=== PATIENT | male | born 1940 | race Caucasian/White ===

== ENCOUNTER 2017-06-02 15:59 | Emergency (ER) | payer MEDICARE ==
[2017-06-02 16:00] VITALS: BMI 78.4
--- NOTE | 2017-06-02 16:46 | ED PDOC ---
HPI: Male Pain Time Seen by Provider: 06/02/17 16:34 Chief Complaint (Nursing): Male Genitourinary History Per: Patient Onset/Duration Of Symptoms: Days (1) Current Symptoms Are (Timing): Still Present Severity: Moderate Pain Scale Rating Of: 3 Quality Of Discomfort: Aching Associated Symptoms: denies: Nausea, Vomiting, Diarrhea, Urinary Symptoms Additional Complaint(s): Left flank pain radiating to left lower abd since this AM. Denies dysuria or hematuria. No NVD. Denies fever. Past Medical History Vital Signs: Last Vital Signs Temp 98.5 F 06/02/17 16:26 Pulse 61 06/02/17 16:26 Resp 15 06/02/17 16:26 BP 164/92 H 06/02/17 16:26 Pulse Ox 95 06/02/17 16:26 - Medical History PMH: Arthritis, Diabetes, HTN, Hypercholesterolemia Denies: Cardia Arrhythmia, CHF, Fractures, Hyperthyroidism, Hypothyroidism, Mitral Valve Prolapse, Osteoporosis, Peripheral Edema, Chronic Kidney Disease, Rheumatoid Arthritis - Surgical History Surgical History: Denies: Appendectomy, CABG, Carotid Endarterectomy, Cholecystectomy, Coronary Stent, Endoscopy, Pacemaker, Tonsillectomy - Family History Family History: States: Unknown Family Hx - Home Medications Home Medications: Ambulatory Orders Medication Instructions Recorded Allopurinol 300 mg PO DAILY PRN 02/17/14 Aspirin 81 mg PO DAILY 02/17/14 Atenolol 100 mg PO DAILY 02/17/14 Diazepam 5 mg PO HS PRN 02/17/14 Furosemide 40 mg PO DAILY PRN 02/17/14 Glyburide/Metformin HCl 1 tab PO DAILY 02/17/14 [Glyburide/Metformin 5 mg-500 mg] Quinapril Hydrochloride [Quinapril 10 mg PO HS 02/17/14 HCl] Simvastatin 40 mg PO HS 02/17/14 Tamsulosin [Flomax] 0.4 mg PO DAILY PRN 02/17/14 Acetaminophen/Hydrocodone Bi 1 tab PO Q8 PRN #12 tab 06/02/17 [Vicodin 300 mg-5 mg] Docusate Sodium [Dulcolax Stool 100 mg PO DAILY #14 capsule 06/02/17 Softener] Tamsulosin [Flomax] 0.4 mg PO DAILY #14 cap 06/02/17 - Allergies Allergies/Adverse Reactions: Allergies Allergy/AdvReac Type Severity Reaction Status Date / Time diclofenac [From Voltaren] Allergy RASH Verified 06/02/17 16:30 Review of Systems ROS Statement: Except As Marked, All Systems Reviewed And Found Negative Constitutional: Negative for: Fever Gastrointestinal: Positive for: Abdominal Pain. Negative for: Nausea, Vomiting , Diarrhea Genitourinary Male: Negative for: Dysuria, Frequency Musculoskeletal: Positive for: Back Pain Physical Exam - Physical Exam Appears: Positive for: Non-toxic, No Acute Distress Skin: Positive for: Normal Color, Warm, DRY Gastrointestinal/Abdominal: Positive for: Bowel Sounds, Soft. Negative for: Tenderness Back: Negative for: L CVA Tenderness, R CVA Tenderness Extremity: Positive for: Swelling. Negative for: Calf Tenderness Neurologic/Psych: Positive for: Alert, Oriented - Laboratory Results Result Diagrams: 06/02/17 17:15 06/02/17 17:15 - ECG O2 Sat by Pulse Oximetry: 95 Disposition - Clinical Impression Clinical Impression: Kidney stone - Patient ED Disposition Is Patient to be Admitted: Transfer of Care - Disposition Referrals: [facility] [Outside] Rod Wolf MD [Medical Doctor] - Disposition: Transfer of Care Disposition Time: 19:00 Condition: IMPROVED Additional Instructions: Please give your CT report to your doctor to address the findings we found today. Prescriptions: Acetaminophen/Hydrocodone Bi [Vicodin 300 mg-5 mg] 1 tab PO Q8 PRN #12 tab PRN Reason: Pain, Severe (8-10) Docusate Sodium [Dulcolax Stool Softener] 100 mg PO DAILY #14 capsule Tamsulosin [Flomax] 0.4 mg PO DAILY #14 cap Instructions: Kidney Stones (ED), Narcotic Pain Management (ED) Forms: [facility] (Mongolian) Patient Signed Over To: Salomon Malagon
[2017-06-02 17:22] LABS: BASO % 0.5 % (0.0-2.0); EOS # 0.1 K/uL (0.0-0.7); EOS % 0.9 % (0.0-4.0); HEMOGLOBIN 14.5 g/dL (12.0-18.0); LYMPH # 1.3 K/uL (1.0-4.3); LYMPH % 18.4 % (20.0-40.0); MEAN CELL VOLUME 94.7 fl (80.0-94.0); MEAN CORPUSCULAR HEMOGLOBIN 31.1 pg (27.0-31.0); MEAN CORPUSCULAR HGB CONC 32.9 g/dL (33.0-37.0); MEAN PLATELET VOLUME 8.3 fl (7.2-11.7); MONO # 0.7 K/uL (0.0-0.8); MONO % 10.1 % (0.0-10.0); NEUT # 4.9 K/uL (1.8-7.0); NEUT % 70.1 % (50.0-75.0); RBC 4.67 Mil/uL (4.40-5.90); RED CELL DISTRIBUTION WIDTH 15.9 % (11.5-14.5)
[2017-06-02 17:34] LABS: ALB/GLOB RATIO 1.2 (1.0-2.1); ALBUMIN 3.8 g/dL (3.5-5.0); ALT/SGPT 67 U/L (21-72); AST/SGOT 70 U/L (17-59); BLOOD UREA NITROGEN 19 mg/dl (9-20); CALCIUM 8.8 mg/dL (8.4-10.2); GFR AFRICAN-AMERICAN > 60; GFR NON-AFRICAN AMERICAN > 60
[2017-06-02] MEDS ORDERED: Sodium Chloride 0.9% 1,000 ML IV STA (18:29)
[2017-06-02] MEDS ORDERED: Morphine 4 MG/ML VIAL IVP ONE ×2 (18:29→18:56)
[2017-06-02] MEDS ORDERED: Morphine 4 MG/ML VIAL ONE ×2 (18:35→18:50)
[2017-06-02 18:55] VITALS: RESP 18; TEMP 98
--- NOTE | 2017-06-02 19:25 | CT ---
EXAM: CT Abdomen and Pelvis Without Intravenous Contrast CLINICAL HISTORY: 77 years old, male; Pain; Abdominal pain; Other: B/ol flank pain; Additional info: R/O kidney stone TECHNIQUE: Axial computed tomography images of the abdomen and pelvis without intravenous contrast. All CT scans at this facility use one or more dose reduction techniques, viz.: automated exposure control; ma/kV adjustment per patient size (including targeted exams where dose is matched to indication; i.e. head); or iterative reconstruction technique. Coronal and sagittal reformatted images were created and reviewed. COMPARISON: No relevant prior studies available. FINDINGS: Lower thorax: Minimal atelectasis/scarring. 0.6 cm LEFT lower lobe nodule. Coronary artery calcifications. ABDOMEN: Liver: Lobulated contour. Gallbladder and bile ducts: No calcified stones. No ductal dilation. Pancreas: Unremarkable. No ductal dilation. Spleen: Mildly enlarged. Adrenals: No mass. Kidneys and ureters: Moderate stranding about LEFT kidney. No renal calculi. Few probable RIGHT renal cysts. Mild pelvocaliectasis of LEFT kidney. Mildly dilated LEFT proximal to mid ureter. 0.2 x 0.2 x 0.2 cm calculus within LEFT mid ureter. Stomach and bowel: Few scattered diverticula within colon. No associated inflammatory stranding. Mild mural thickening vs underdistention of descending, sigmoid colon. No associated inflammatory stranding. No obstruction. Appendix: Normal caliber. No inflammation. PELVIS: Bladder: Unremarkable. No stones. Reproductive: Unremarkable as visualized. Subperitoneal space: Mild stranding/fluid in presacral space, nonspecific. ABDOMEN and PELVIS: Intraperitoneal space: No significant fluid collection. No free air. Bones/joints: Vertebroplasty. Degenerative changes and mild scoliosis of spine. Soft tissues: Tiny umbilical hernia containing fat. Vasculature: Mild varices within upper abdomen. [id number] atherosclerotic disease. No aneurysm. Lymph nodes: No pathologically enlarged lymph nodes. IMPRESSION: 1. LEFT mid ureteral calculus with mild hydroureteronephrosis. 2. Mild colitis versus underdistention. Clinical correlation is needed. 3. Cirrhosis with portal hypertension. 4. Pulmonary nodule. For low-risk patients recommend follow-up chest CT at 6-12 months. If unchanged consider an additional follow-up CT at 18-24 months. For high-risk patients (smoking history or other known risk factors) initial follow-up chest CT at 6-12 months and if unchanged, 18-24 months. 5. Incidental/non-acute findings are described above.
--- NOTE | 2017-06-02 19:30 | ED PDOC ---
- Laboratory Results Result Diagrams: 06/02/17 17:15 06/02/17 17:15 - ECG O2 Sat by Pulse Oximetry: 95 (RA) Pulse Ox Interpretation: Normal Medical Decision Making Medical Decision Making: Time: 19:00 Patient was endorsed to me at this time from Dr. Sander Brian. Pending CT scan and reevaluation. CT Abd/Pelvis: FINDINGS: Lower thorax: Minimal atelectasis/scarring. 0.6 cm LEFT lower lobe nodule. Coronary artery calcifications. ABDOMEN: Liver: Lobulated contour. Gallbladder and bile ducts: No calcified stones. No ductal dilation. Pancreas: Unremarkable. No ductal dilation. Spleen: Mildly enlarged. Adrenals: No mass. Kidneys and ureters: Moderate stranding about LEFT kidney. No renal calculi. Few probable RIGHT renal cysts. Mild pelvocaliectasis of LEFT kidney. Mildly dilated LEFT proximal to mid ureter. 0.2 x 0.2 x 0.2 cm calculus within LEFT mid ureter. Stomach and bowel: Few scattered diverticula within colon. No associated inflammatory stranding. Mild mural thickening vs underdistention of descending, sigmoid colon. No associated inflammatory stranding. No obstruction. Appendix: Normal caliber. No inflammation. PELVIS: Bladder: Unremarkable. No stones. Reproductive: Unremarkable as visualized. Subperitoneal space: Mild stranding/fluid in presacral space, nonspecific ABDOMEN and PELVIS: Intraperitoneal space: No significant fluid collection. No free air. Bones/joints: Vertebroplasty. Degenerative changes and mild scoliosis of spine. Soft tissues: Tiny umbilical hernia containing fat. Vasculature: Mild varices within upper abdomen. [id number] atherosclerotic disease. No aneurysm. Lymph nodes: No pathologically enlarged lymph nodes. IMPRESSION: 1. LEFT mid ureteral calculus with mild hydroureteronephrosis. 2. Mild colitis versus underdistention. Clinical correlation is needed. 3. Cirrhosis with portal hypertension. 4. Pulmonary nodule. For low-risk patients recommend follow-up chest CT at 6-12 months. If unchanged consider an additional follow-up CT at 18-24 months. For high-risk patients (smoking history or other known risk factors) initial follow-up chest CT at 6-12 months and if unchanged, 18-24 months. 5. Incidental/non-acute findings are described above. Thank you for allowing us to participate in the care of your patient. Dictated and Authenticated by: Bill Smith MD 06/02/2017 7:25 PM Eastern Time ([place] & [place]) 8PM Pt. seen and examined at the bedside, states his pain is improved. Spoke with Dr. Wolf who states pt. can be safely discharged because stone is small and likely to pass on its own, will arrange to contact both the patient and the patient's for outpatient followup. Will give patient copy of CT report to show to PMD regarding non-acute findings (pulmonary nodule). Explained to patient about narcotic pain management and potential for abuse, advised him only to use it as absolutely necessary. Will d/c on vicodin, stool softener, and flomax. No NSAID to be prescribed because patient states he has had " throat closure" after taking voltaran and motrin. Return precautions were discussed, such as worsening pain, fevers, chills, or other concerning symptoms. No narcotic usage found on [employer]. Scribe Attestation: Documented by Korin Galan, acting as a scribe for Salomon Malagon MD Provider Scribe Attestation: All medical record entries made by the Scribe were at my direction and personally dictated by me. I have reviewed the chart and agree that the record accurately reflects my personal performance of the history, physical exam, medical decision making, and the department course for this patient. I have also personally directed, reviewed, and agree with the discharge instructions and disposition. Disposition Discussed With : Rod Wolf - Clinical Impression Clinical Impression: Kidney stone - POA Present On Arrival: None - Disposition Referrals: Rod Wolf MD [Medical Doctor] - [facility] [place] [Outside] Disposition: Routine/Home Disposition Time: 20:08 Condition: IMPROVED Additional Instructions: Please give your CT report to your doctor to address the findings we found today. Prescriptions: Acetaminophen/Hydrocodone Bi [Vicodin 300 mg-5 mg] 1 tab PO Q8 PRN #12 tab PRN Reason: Pain, Severe (8-10) Docusate Sodium [Dulcolax Stool Softener] 100 mg PO DAILY #14 capsule Tamsulosin [Flomax] 0.4 mg PO DAILY #14 cap Instructions: Kidney Stones (ED), Narcotic Pain Management (ED) Forms: [employer] (Nepali)
[2017-06-02 20:49] LABS: URINE BACTERIA RARE (<OCC); URINE BILIRUBIN NEGATIVE (NEGATIVE); URINE BLOOD LARGE (NEGATIVE); URINE CLARITY CLOUDY (Clear); URINE COLOR YELLOW (YELLOW); URINE GLUCOSE (UA) NEG (Normal); URINE LEUKOCYTE ESTERASE NEG Leu/uL (Negative); URINE NITRATE NEGATIVE (NEGATIVE); URINE PROTEIN 30 mg/dL (NEGATIVE); URINE UROBILINOGEN 0.2-1.0 mg/dL (0.2-1.0)
[2017-06-02 21:06] VITALS: BP 150/87; PULSE 70
[2017-06-03 10:59] VITALS: O2SAT 95
== END 2017-06-02 21:06 | disposition home or self-care (01) ==
LOC: H.ER 15:59
DX: N20.0 Calculus of kidney (principal); E11.9 Type 2 diabetes mellitus without complications; E78.00 Pure hypercholesterolemia, unspecified; I10 Essential (primary) hypertension; K74.60 Unspecified cirrhosis of liver; K76.6 Portal hypertension; Z79.82 Long term (current) use of aspirin; Z79.84 Long term (current) use of oral hypoglycemic drugs
CPT/HCPCS: 74176; 80053; 81003; 85025; 87086; 96374; 99282; J2270; J7040